=== PATIENT | female | born 1985 | race Caucasian/White ===

== ENCOUNTER 2023-10-20 17:47 | Inpatient (IN) | payer BC, OTHER, SELFPAY ==
[2023-10-20] VITALS (7 sets, daily range): BP systolic 135–167; BP diastolic 76–99; BMI 26.4; BMI 26.0
[2023-10-20 13:47] LABS: Urine Albumin Trace (Neg - Trace); Urine Bilirubin 1+ (Negative); Urine Character Clear (Clear); Urine Color Yellow; Urine Glucose Negative (Negative); Urine Ketone 1+ (Negative); Urine Leukocyte Trace (Negative); Urine Nitrite Negative (Negative); Urine Occult Blood Negative (Negative); Urine Urobilinogen Negative (Neg - 1+)
[2023-10-20 13:49] LABS: % Basophils 0.4 % (0-2); % Eosinophils 0.6 % (0-6); % Immature Granulocytes 0.4 % (0-0.5); % Lymphocytes 7.4 % (20.5-51.1); % Monocytes 3.9 % (1.7-9.3); % Neutrophils 87.3 % (42.2-75.2); Absolute Eosinophils 0.1 10^3/uL (0-0.7); Absolute Lymphocytes 0.6 10^3/uL (1.2-3.4); Absolute Monocytes 0.3 10^3/uL (0.1-0.6); Absolute Neutrophils 7.4 10^3/uL (1.4-6.5); Hematocrit 35.6 % (37.0-47.0); Hemoglobin 11.9 g/dL (12.0-16.0); Mean Corp Hgb Conc. 33.4 g/dL (33.0-37.0); Mean Corpuscular Hgb 31.4 pg (27.0-31.0); Mean Corpuscular Volume 93.9 fL (81.0-99.0); Mean Platelet Volume 10.7 fL (7.4-10.4); Nucleated Red Blood Cells % 0 %; Platelet Count 266 10^3/uL (130-400); Red Blood Cell Count 3.79 10^6/uL (4.20-5.40); Red Cell Dist. Width 11.9 % (11.5-14.5); White Blood Cell Count 8.4 10^3/uL (4.8-10.8)
[2023-10-20 13:58] LABS: Urine Squamous Cell >30 /LPF (Few)
[2023-10-20 13:59] LABS: HCG, Serum Qualitative Screen Negative
[2023-10-20 14:00] LABS: Urine Bacteria Few (Negative); Urine White Cell 0-2 /HPF (0-5)
[2023-10-20 14:01] LABS: Urine Red Blood Cell 0-2 /HPF (0-2)
[2023-10-20 14:03] LABS: ALT (SGPT) 26 U/L (0-35); AST (SGOT) 33 U/L (14-36); Albumin 4.4 g/dl (3.5-5.0); Alkaline Phosphatase 66 U/L (38-126); Blood Urea Nitrogen 20 mg/dl (7-17); Calcium 8.6 mg/dl (8.4-10.2); Carbon Dioxide 24 mmol/L (22-30); Chloride 104 mmol/L (98-107); Glucose 103 mg/dl (70-99); Lipase 25 U/L (23-300); Sodium 139 mmol/L (135-145); Total Bilirubin 0.7 mg/dl (0.2-1.3); Total Protein 6.8 g/dl (6.3-8.2); eGFR > 60.00
[2023-10-20] MEDS: NSS 1000 IV ×2 (15:41→21:17)
[2023-10-20] MEDS: DILAUDID 0.5 MG IV ×3 (15:42→23:58)
[2023-10-20] MEDS: ZOFRAN 4 MG IV (15:42)
--- NOTE | 2023-10-20 16:06 | ED.GENMED ---
History of Present Illness
General
Chief Complaint: Abdominal Pain
Source: patient
Exam Limitations: none
Time Seen by Provider: 10/20/23 15:07
Nursing documentation reviewed up to this point in time: agreed with
History of Present Illness
History of Present Illness:
Patient to ED with complaint of abdominal pain, bilateral flank pain. Symptoms started this AM. Initially had difficulty urinating. States this is a chronic issue for her but today this seemed worse. Denies fever/chills. +n/v. States she had
not had a bowel movement since friday so she gave herself an enema. Now reports diarrhea. Brought to ED by spouse for eval.
Past History
Past History
ED Past Medical History: HTN and Other (Kidney stones, fibromyalgia, elevated SADA - work up in progress for lupus)
ED Past Surgical History: , Gynecological (Uterine ablation 01/2023), Orthopedic and Other (Bariatric surgery February 2019)
Social History
Tobacco: Non-smoker
Alcohol: None
Drug: None
Personal:
Living: with family
Phy Exam
General Physical Exam
General Presentation: well appearing and moderate distress
General age: appears stated age
General Skin: warm and dry
General Habitus: normal
General Mental: alert
Cardiovascular Exam
Cardiovascular Exam: regular rate/rhythm and no edema
Pulmonary Exam
Pulmonary Exam: no respiratory distress
Gastrointestinal Exam
Gastrointestinal Exam: soft, no organomegaly and non distended
Palpation: generalized: Moderate tenderness
Musculoskeletal Exam
Musculoskeletal Exam: full ROM
Skin Exam
Skin Exam: normal color
Psychiatric Exam
Psychiatric Exam: anxious
Course
Orders/Labs/Results
Orders:
Orders
10/20/23 13:25
Test Result ONCE
10/20/23 13:39
Complete Blood Count/With Diff Urgent
Comprehensive Metabolic Panel Urgent
HCG, Serum Qualitative Screen Urgent
Lipase Urgent
Urinalysis Reflex To Culture Urgent
Date Specimen was Collected: 10/20/23
Time Specimen was Collected: 13:25
Urine Microscopic Reflex Cult Urgent
10/20/23 Dinner
NPO
Allow oral meds: Yes
Allow clear liquids: No
10/20/23 15:27
0.9% Sodium Chloride 1000 ml [Nss] 1,000 ml IV BOLUS
HYDROmorphone [Dilaudid] 0.5 mg IV NOW STA
Ondansetron Injectable [Zofran] 4 mg IV NOW STA
10/20/23 15:28
CT Abd/pelvis W Iv Cont Urgent
Comment:
Reason For Exam: abdominal and flankk pain, vomiting.
10/20/23 17:32
Admit/Transfer Patient As Directed
Co-Sign Provider:
Level of Care: Inpatient admission
Assign to:: Medical/Surgical
Physician / Group: sridhar
Diagnosis: small bowel obstruction
Reason for Hospitalization: small bowel obstruction
Expected length of stay greater than two midnights?: Yes
ELOS- Estimated Length of Stay in days: 2
I certify the patient meets the requirements for IP care: Yes
10/20/23 17:33
Code Status As Directed
Resuscitation Status: Full Code
10/20/23 19:19
HYDROmorphone [Dilaudid] 0.5 mg IV Q4HPRN PRN
10/20/23 19:44
0.9% Sodium Chloride 1000 ml [Nss] 1,000 ml IV 100 mls/hr
Alprazolam [Xanax] 0.5 mg PO TIDPRN PRN
Ondansetron Injectable [Zofran] 4 mg IV Q6HPRN PRN
10/20/23 19:44
Activity As Directed
Activity Level: As Tolerated
Bladder Scan As Directed
Follow Bladder Retention/Intermittent Cath Algorithm?: Yes
PRN if no void in __ hours: 6
Frequency: Per Retention Algorithm
If Bladder Scan Result >: 400
then:: Straight cath
Straight Cath As Directed
Frequency: Per Retention Algorithm
Additional Instructions: straight cath as needed per acute urinary retention algorithm for 24 hrs
Additional Instructions: for bladder scan greater than 400 mL
Vital Signs As Directed
Frequency: Per unit guidelines
DX Deep Vein Thrombosis Video Routine
10/20/23 20:00
Gabapentin [Neurontin] 300 mg PO BID
Heparin 5,000 units SC Q12
10/20/23 22:00
Cyclobenzaprine HCl [Flexeril] 5 mg PO HS
10/21/23 06:00
Complete Blood Count/With Diff IN AM
Comprehensive Metabolic Panel IN AM
10/21/23 08:00
Amlodipine [Norvasc] 5 mg PO DAILY
Buspirone [Buspar] 5 mg PO DAILY
Duloxetine Delayed Release [Cymbalta Delayed Release] 30 mg PO DAILY
Duloxetine Delayed Release [Cymbalta Delayed Release] 60 mg PO DAILY
Hydroxychloroquine [Plaquenil] 400 mg PO DAILY
10/21/23 12:00
Amphet Asp/Amphet/D-Amphet [Adderall] 10 mg PO NOON
Abnormal Lab Results
10/20/23
13:39
RBC 3.79 L 10^6/uL
(4.20-5.40)
Hgb 11.9 L g/dL
(12.0-16.0)
Hct 35.6 L %
(37.0-47.0)
MCH 31.4 H pg
(27.0-31.0)
MPV 10.7 H fL
(7.4-10.4)
Absolute Neuts (auto) 7.4 H 10^3/uL
(1.4-6.5)
Absolute Lymphs (auto) 0.6 L 10^3/uL
(1.2-3.4)
Neutrophils % 87.3 H %
(42.2-75.2)
Lymphocytes % 7.4 L %
(20.5-51.1)
BUN 20 H mg/dl
(7-17)
Glucose 103 H mg/dl
(70-99)
Urine Ketones 1+ A
(Negative)
Urine Bilirubin 1+ A
(Negative)
Leukocyte Esterase Rfl Trace A
(Negative)
Urine Bacteria (Reflex) Few A
(Negative)
10/20/23 13:39
10/20/23 13:39
Vital Signs
Initial and Last Documented VS:
Initial Vital Signs
Temp Pulse Resp BP Pulse Ox
98.2 F 95 16 167/99 100
10/20/23 13:25 10/20/23 13:25 10/20/23 13:25 10/20/23 13:25 10/20/23 13:25
Last Documented Vital Signs
Temp Pulse Resp BP Pulse Ox
98.3 F 77 16 144/76 100
10/20/23 20:21 10/20/23 20:21 10/20/23 20:21 10/20/23 20:21 10/20/23 20:21
*Radiology
Radiology exam reviewed: radiology read reviewed (SBO)
*Pulse Oximetry
Patient hypoxic: no
*Critical Care Note
Total Time (30-74mins, 75-104mins- exclusive of procedures): Not Applicable
Update Note
Update Note:
Patient to ED with n/v/d. No fever/chills.Symptoms started this AM Abd CT: SBO possibly due to adhesions. WIll admit to hospitalist. Feeling improved after IVF, pain meds, zofran.
ED Attending Note
-
Portions of this chart may have been created with voice recognition software.� Occasional wrong word or��sound alike� substitutions may have occurred due to the inherent limitations of voice recognition software.
Discharge Plan
Departure
Patient Disposition: Admit
Date of Disposition: 10/20/23
Time of Disposition: 17:09
Presentation/result/management discussed w/ accepting MD/DO: Hospitalist
Condition: Fair
Covid-19: Not Applicable
Discharge Problem:
SBO (small bowel obstruction)
Interventions
Interventions:
*Risk Screen - Suicide Last Done: 10/20/23 15:38
*General Assessment Last Done: 10/20/23 15:38
*Neglect/Abuse Screening Last Done: 10/20/23 15:38
ED- Fall Risk Assessment Last Done: 10/20/23 15:38
*ED COVID-19 Vaccine History Last Done: 10/20/23 15:38
*Nursing Disposition Last Done: 10/20/23 19:44
WZ-Pxqhem-Xxjlowozik Assessment Last Done: 10/20/23 15:38
Discharge Date and Time
Discharge Date/Time: 10/20/23 19:45
--- NOTE | 2023-10-20 17:37 | HPS.HSE ---
Family Physician
-
Family Physician: Isamar Tate
Chief Complaint
-
abdominal pain
History of Present Illness
38-year-old female past medical history of duodenal switch 4 years ago, lupus, hypertension, kidney stones, fibromyalgia, anxiety, ADHD, presenting with abdominal pain, bilateral flank pain which started this morning associate with nausea and
vomiting. She has not had a bowel movement since past Friday so she gave herself an enema this morning and had some diarrhea afterwards. She did have some chills today.
Patient has had history of multiple kidney stones for which she takes chronic pain medicine. She did have some difficulty urinating which occurs chronically but was worse today.
She denies smoking. She rarely drinks alcohol. Denies marijuana or any other drugs.
Medical History
Past Medical History
Past Medical History: Reports Other (duodenal switch 4 years ago, lupus, hypertension, kidney stones, fibromyalgia, anxiety, ADHD)
Past Surgical History: Reports Other ( , Gynecological (Uterine ablation 01/2023), Orthopedic and Other (Bariatric surgery February 2019))
Social History
Tobacco: Non-smoker
Alcohol: Occasional
Drug: None
Family History
Family History: Not pertinent
Allergies / Home Medications
Allergies reflects when Allergies were last updated in [facility].
Home Medications with original date entered in [facility]
Allergy/Medication List:
Allergies
Allergy/AdvReac Type Severity Reaction Status Date / Time
latex [Latex] Allergy swallowing Verified 02/25/23 06:52
issue
Home Medications
loratadine 10 mg tablet 10 mg PO DAILY 04/15/17
alprazolam 0.5 mg tablet (Xanax) 0.5 mg PO TID PRN anxiety 02/20/23
amlodipine 5 mg tablet (Norvasc) 5 mg PO DAILY 02/20/23
buprenorphine HCl 600 mcg buccal film (Belbuca) 600 mcg buccal Q12H 02/20/23
calcium citrate 1,000 mg PO TID 02/20/23
cholecalciferol (vitamin D3) 50 mcg (2,000 unit) tablet (Vitamin D3) 50 mcg PO DAILY 02/20/23
cyclobenzaprine 5 mg tablet 5 mg PO HS 02/20/23
dextroamphetamine-amphetamine 10 mg tablet (Adderall) 10 mg PO NOON 02/20/23
dextroamphetamine-amphetamine ER 25 mg 24hr capsule,extend release (Adderall XR) 25 mg PO DAILY 02/20/23
diphenhydramine HCl 25 mg capsule (Benadryl) 25 mg PO DAILY PRN allergies 02/20/23
duloxetine 30 mg capsule,delayed release (Cymbalta) 30 mg PO DAILY 02/20/23
duloxetine 60 mg capsule,delayed release (Cymbalta) 60 mg PO DAILY 02/20/23
ferrous sulfate 325 mg (65 mg iron) tablet 325 mg PO DAILY 02/20/23
gabapentin 300 mg capsule 300 mg PO BID 02/20/23
hydroxychloroquine 200 mg tablet 400 mg PO DAILY 02/20/23
kxzsmedn-sdhnywnt-meyp 45 mg-folic acid 800 mcg-vit K 120 mcg capsule (Bariatric Multivitamins) 1 cap PO DAILY 02/20/23
nabumetone 500 mg tablet 500 mg PO BID 02/20/23
potassium citrate 15 mEq (1,620 mg) tablet,extended release 45 meq PO TID 02/20/23
rizatriptan 10 mg tablet (Maxalt) 10 mg PO DAILY PRN migraines 02/20/23
zinc 50 mg tablet 50 mg PO DAILY 02/20/23
oxycodone-acetaminophen 5 mg-325 mg tablet 1 tab PO Q6 02/25/23
Review of Systems
-
History Source: Patient
A 12 point ROS was completed and negative except as noted: Yes
Constitutional: Reports No Symptoms
EENT: Reports No Symptoms
Respiratory: Reports No Symptoms
Cardiac: Reports No Symptoms
Abdomen/GI: Reports See HPI
: Reports No Symptoms
Musculoskeletal: Reports No Symptoms
Skin: Reports No Symptoms
Neurological: Reports No Symptoms
Endocrine: Reports No Symptoms
Hematologic/Lymphatic: Reports No Symptoms
Psych: Reports No Symptoms
Physical Exam
Vital Signs
Vital Signs
Temp Pulse Resp BP Pulse Ox
98.2 F 83 17 135/89 99
10/20/23 13:25 10/20/23 17:15 10/20/23 17:15 10/20/23 17:09 10/20/23 17:15
Physical Exam
General: Well Developed, Well Nourished and No Apparent Distress
HEENT: NormoCephalic, Moist mucous membranes and Atraumatic
Respiratory: Clear
Cardiac: S1/S2 and Regular Rhythm; No Murmur or Rub
GI: Soft, Non Distended, Normal Bowel Sounds and Tender (epigastric, right lower quadrant tenderness ); No Organomegaly
Rectal: Deferred by Provider
Musculoskeletal: No Clubbing, No Cyanosis and No Edema
Skin: No Rash
Neuro: Nonfocal/grossly intact
Laboratory Results
-
10/20/23 13:39
10/20/23 13:39
Laboratory Results
Total Bilirubin 0.7 mg/dl (0.2-1.3) 10/20/23 13:39
AST 33 U/L (14-36) 10/20/23 13:39
ALT 26 U/L (0-35) 10/20/23 13:39
Alkaline Phosphatase 66 U/L (38-126) 10/20/23 13:39
Lipase 25 U/L (23-300) 10/20/23 13:39
Data Reviewed
-
Lab Data: Labs Reviewed by me
Old Records: Reviewed
Impression/Plan
-
IMPRESSION:
PLAN:
# Small bowel obstruction likely secondary to adhesions from prior duodenal switch surgery
-CT abdomen pelvis shows small bowel obstruction with transition point in the right hemiabdomen, possibly secondary to adhesions
-N.p.o.
-IV fluids
-Dilaudid for pain, Zofran for nausea
-General surgery consulted
# Possible urinary retention
-Urinalysis negative
-Bladder scan protocol
# Incidental mild bilateral lower lobe infectious/inflammatory bronchiolitis
-Does not correlate clinically
History of duodenal switch surgery 4 years ago
Presumed Lupus
-Continue hydroxychloroquine
Essential hypertension
-Continue amlodipine
History of recurrent kidney stones
Fibromyalgia with Chronic Pain
-Continue gabapentin, Flexeril
-Continue duloxetine
-hold Percocet, Buprenorphine while receiving Dilaudid
Anxiety
-Continue Xanax
ADHD
-Continue Adderall
Migraines
Chronic anemia
-Hemoglobin stable at 11.9
-Continue ferrous sulfate
Full code
DVT prophylaxis�heparin
N.p.o.
[2023-10-20] MEDS: FLUSH (NSS) 1 FLUSH IV (21:17)
[2023-10-20] MEDS: HEPARIN 5000 UNITS SC (21:19)
[2023-10-20] MEDS: NEURONTIN 300 MG PO (21:20)
[2023-10-20] MEDS: FLEXERIL 5 MG PO (21:21)
[2023-10-21] MEDS: CYMBALTA DELAYED RELEASE 60 MG PO ×2 (00:22→22:19)
[2023-10-21] MEDS: CYMBALTA DELAYED RELEASE 30 MG PO ×2 (00:22→22:19)
--- NOTE | 2023-10-21 02:42 | PTCARENOTE ---
Patient received from Ed and ambulated to room with staff. Voiding without difficulty. She was oriented to room and surroundings. HRR,Breath sounds are CTA. Abdominal sounds are hypoactive and tender. Left thigh with small poison kenny rash
with cabbed scratch VIVI. IVF as ordered.
[2023-10-21] MEDS: XANAX 0.5 MG PO ×3 (03:12→22:23)
[2023-10-21 07:20] VITALS: BP 122/93
[2023-10-21 07:41] LABS: % Basophils 0.7 % (0-2); % Eosinophils 1.7 % (0-6); % Immature Granulocytes 0.3 % (0-0.5); % Monocytes 5.7 % (1.7-9.3); % Neutrophils 74.6 % (42.2-75.2); Absolute Basophils 0.1 10^3/uL (0-0.2); Absolute Eosinophils 0.1 10^3/uL (0-0.7); Absolute Lymphocytes 1.2 10^3/uL (1.2-3.4); Absolute Monocytes 0.4 10^3/uL (0.1-0.6); Absolute Neutrophils 5.2 10^3/uL (1.4-6.5); Hematocrit 37.1 % (37.0-47.0); Hemoglobin 12.5 g/dL (12.0-16.0); Mean Corp Hgb Conc. 33.7 g/dL (33.0-37.0); Mean Corpuscular Hgb 31.3 pg (27.0-31.0); Mean Corpuscular Volume 92.8 fL (81.0-99.0); Mean Platelet Volume 10.9 fL (7.4-10.4); Nucleated Red Blood Cells % 0 %; Platelet Count 283 10^3/uL (130-400); Red Cell Dist. Width 11.8 % (11.5-14.5); White Blood Cell Count 6.9 10^3/uL (4.8-10.8)
[2023-10-21] MEDS: NSS 1000 IV ×2 (07:43→18:27)
[2023-10-21] MEDS: DILAUDID 0.5 MG IV ×2 (07:43→13:38)
[2023-10-21 08:15] LABS: ALT (SGPT) 19 U/L (0-35); AST (SGOT) 26 U/L (14-36); Albumin 3.4 g/dl (3.5-5.0); Alkaline Phosphatase 66 U/L (38-126); Blood Urea Nitrogen 11 mg/dl (7-17); Calcium 8.3 mg/dl (8.4-10.2); Carbon Dioxide 22 mmol/L (22-30); Chloride 107 mmol/L (98-107); Estimated Creatinine Clearance 112 ml/min; Glucose 86 mg/dl (70-99); Potassium 3.7 mmol/L (3.5-5.1); Sodium 139 mmol/L (135-145); Total Bilirubin 0.6 mg/dl (0.2-1.3); Total Protein 5.5 g/dl (6.3-8.2); eGFR > 60.00
[2023-10-21] MEDS: BUSPAR 5 MG PO (10:18)
[2023-10-21] MEDS: PLAQUENIL 400 MG PO (10:18)
[2023-10-21] MEDS: NORVASC 5 MG PO (10:18)
[2023-10-21] MEDS: HEPARIN 5000 UNITS SC ×2 (10:18→20:05)
[2023-10-21] MEDS: NEURONTIN 300 MG PO ×2 (10:18→20:06)
[2023-10-21] MEDS: OMNIPAQUE 50 ML PO (10:50)
--- NOTE | 2023-10-21 11:02 | CON.GS ---
Medical History
-
Chief Complaint: Abdominal pain, nausea, vomiting.
History of Present Illness:
Patient is a 38 yo F with a PMH of anxiety/depression, fibromyalgia, ADHD, HTN, s/p , s/p uterine ablation, and obesity s/p laparoscopic duodenal switch in 2019 at [facility] c/b nephrolithiasis and chronic pain. Ms. Rodas
presents with abdominal pain, nausea, and vomiting. Her symptoms for started yesterday. Last bowel movement was on Friday. She reports flatus since presentation to the hospital. Overall her symptoms have improved but not completely resolved.
She denies any current nausea or vomiting. She continues to have some mild crampy abdominal pain. No dietary indiscretion. She is on daily narcotics for chronic pain as it relates to her fibromyalgia and issues with nephrolithiasis. Of note, she
lost over 150 pounds post duodenal switch. She was lost to follow-up at [place] during COVID.
Past Medical History
Past Medical History: HTN, Psychiatric (Depression/anxiety, fibromyalgia, ADHD) and Other (Nephrolithiasis)
Past Surgical History: Bariatric (Laparoscopic duodenal switch in 2019 at [facility]), and Gynecological (Uterine ablation)
Social History
Tobacco: Non-Smoker
Alcohol: Occasional
Drug: None
Family History
Family History: Reviewed & Not Pertinent
Allergies / Home Medications
Allergy/AdvReac Type Severity Reaction Status Date / Time
latex [Latex] Allergy swallowing Verified 02/25/23 06:52
issue
�Medication �Instructions �Recorded �Confirmed �Type
loratadine 10 mg tablet 10 mg PO DAILY 04/15/17 02/25/23 History
alprazolam 0.5 mg tablet (Xanax) 0.5 mg PO TID PRN anxiety 02/20/23 10/21/23 History
amlodipine 5 mg tablet (Norvasc) 5 mg PO HS 02/20/23 10/21/23 History
calcium citrate 1,000 mg PO TID 02/20/23 10/21/23 History
cholecalciferol (vitamin D3) 50 50 mcg PO DAILY 02/20/23 10/21/23 History
mcg (2,000 unit) tablet (Vitamin
D3)
cyclobenzaprine 5 mg tablet 5 mg PO HS 02/20/23 10/21/23 History
dextroamphetamine-amphetamine ER 25 mg PO DAILY 02/20/23 10/21/23 History
25 mg 24hr capsule,extend release
(Adderall XR)
diphenhydramine HCl 25 mg capsule 25 mg PO DAILY PRN allergies 02/20/23 02/25/23 History
(Benadryl)
duloxetine 30 mg capsule,delayed 30 mg PO HS 02/20/23 10/21/23 History
release (Cymbalta)
duloxetine 60 mg capsule,delayed 60 mg PO HS 02/20/23 10/21/23 History
release (Cymbalta)
ferrous sulfate 325 mg (65 mg 325 mg PO DAILY 02/20/23 10/21/23 History
iron) tablet
gabapentin 300 mg capsule 300 mg PO BID 02/20/23 10/21/23 History
hydroxychloroquine 200 mg tablet 400 mg PO Q OTHER DAY 02/20/23 10/21/23 History
smitwcez-zbsehgcf-nhra 45 mg-folic 1 cap PO DAILY 02/20/23 02/25/23 History
acid 800 mcg-vit K 120 mcg capsule
(Bariatric Multivitamins)
nabumetone 500 mg tablet 500 mg PO BID 02/20/23 10/21/23 History
potassium citrate 15 mEq (1,620 30 meq PO MEALS 02/20/23 10/21/23 History
mg) tablet,extended release
zinc 50 mg tablet 50 mg PO DAILY 02/20/23 02/25/23 History
oxycodone-acetaminophen 5 mg-325 1 tab PO Q6 02/25/23 02/25/23 History
mg tablet
buspirone 5 mg tablet 5 mg PO DAILY 10/20/23 10/20/23 History
buprenorphine HCl 600 mcg buccal 600 mcg buccal Q12H 10/21/23 10/21/23 History
film (Belbuca)
hydroxychloroquine 200 mg tablet 200 mg PO Q OTHER DAY 10/21/23 10/21/23 History
rizatriptan 10 mg tablet (Maxalt) 10 mg PO ONCE PRN migraine 10/21/23 10/21/23 History
Review of Systems
-
A 10 point review of systems was completed, and was negative except as per HPI.
Physical Exam
Vital Signs
Temp Pulse Resp BP Pulse Ox
98.1 F 87 16 122/93 98
10/21/23 07:20 10/21/23 10:18 10/21/23 07:20 10/21/23 10:18 10/21/23 07:20
10/20/23 10/21/23 10/22/23
06:59 06:59 06:59
Actual Weight 70.76 kg
Body Mass Index (BMI) 26.0
Lab Results
10/21/23 07:08
10/21/23 07:08
WBC 6.9 10^3/uL (4.8-10.8) 10/21/23 07:08
Hgb 12.5 g/dL (12.0-16.0) 10/21/23 07:08
Hct 37.1 % (37.0-47.0) 10/21/23 07:08
Plt Count 283 10^3/uL (130-400) 10/21/23 07:08
Abs Immat Gran (auto) 0.0 10^3/uL (0-0.05) 10/21/23 07:08
Neutrophils % 74.6 % (42.2-75.2) 10/21/23 07:08
Physical Exam
General: Well Developed and Well Nourished
HEENT: Normocephalic and Anicteric
Respiratory: Non Labored Respirations
Cardiac: Regular Rhythm
GI: Soft, Tender (Mild lower abdomen), Distended (Mild, tympanitic), Incisions (Well-healed) and Other (Nonperitoneal, no rebound or guarding)
Musculoskeletal: No Edema
Neuro: Nonfocal/Grossly Intact
Data Reviewed
-
CT Scan: Image Personally Visualized and interpreted and Report Reviewed by me
Labs: Labs Reviewed by me
Assessment / Plan
-
Patient is a 38 yo F s/p laparoscopic duodenal switch p/w SBO likely secondary to adhesions. Differential includes internal hernia given her bariatric surgery history.
Some signs of clinical improvement. CT scan limited by lack of oral contrast. No clear evidence of pneumatosis or free air. No clear evidence of mesenteric swirling or internal hernia. Recommend repeat CT scan with oral and IV contrast to better
rule out internal hernia, aid with diagnosis, and for therapeutic purposes. Continue with medical management. We discussed that should she not progress and ultimately need surgical management that we would likely pursue transfer back to [place]
[facility] where she has received her prior bariatric surgery care. All questions answered.
-- No plans for surgery today
-- CT abdomen/pelvis with PO and IV contrast
-- NPO, IVF
--- NOTE | 2023-10-21 12:34 | W.PN.HOSP.TC ---
Today's Communication/Plan
-
see bold
Assessment / Plan
Assessment / Plan
Gen: NAD, AAOx3.
Eyes: EOMI, PERRLA, no scleral icterus.
Neck: supple.
CV: RRR, +S1/S2, no m/r/g.
Resp: CTAB, no rales, wheezes, or rhonchi.
Abd: +BS, soft, NT to light palpation, ND
Skin: No rashes.
Neuro: CN 2-12 intact, non-focal.
Psych: Normal mood and affect.
Small bowel obstruction likely secondary to adhesions from prior duodenal switch surgery:
-h/o duodenal switch surgery 4 years ago
-CT abdomen pelvis on admission showed small bowel obstruction with transition point in the right hemiabdomen, possibly secondary to adhesions
-NPO/IVFs, surgery following
-check CT A/P with PO/IV contrast
-Dilaudid for pain, Zofran for nausea
Other problems:
Possible urinary retention: Urinalysis negative. Bladder scan protocol.
Incidental mild bilateral lower lobe infectious/inflammatory bronchiolitis: Does not correlate clinically
Presumed Lupus: Continue hydroxychloroquine
Essential hypertension: Continue amlodipine
h/o recurrent kidney stones
Fibromyalgia with Chronic Pain: Continue gabapentin/Flexeril/duloxetine. Hold Percocet, Buprenorphine while receiving Dilaudid .
Anxiety: Continue Xanax
ADHD: Continue Adderall
Migraines
Chronic anemia: Continue ferrous sulfate
FULL/heparin
Anticipated Discharge: 24 - 48 hours
Subjective/Interval History
-
Date of Service: October 21, 2023
No new complaints.
Objective Data
-
Labs:
Laboratory Results
10/21/23
07:08
WBC 6.9
Hgb 12.5
Hct 37.1
Plt Count 283
Sodium 139
Potassium 3.7
Chloride 107
Carbon Dioxide 22
BUN 11
Creatinine 0.5 L
Glucose 86
Calcium 8.3 L
Total Bilirubin 0.6
AST 26
ALT 19
Alkaline Phosphatase 66
Vital Signs:
Vital Signs
Temp Pulse Resp BP Pulse Ox
98.1 F 87 16 122/93 98
10/21/23 07:20 10/21/23 10:18 10/21/23 07:20 10/21/23 10:18 10/21/23 07:20
I&O
10/20/23 10/21/23 10/22/23
06:59 06:59 06:59
Intake Total 1000 / 1000
Balance 1000 / 1000
[2023-10-21] MEDS: ADDERALL PO (13:15)
[2023-10-21 13:39] VITALS: BP 134/80
[2023-10-21 15:25] VITALS: BP 113/82
[2023-10-21] MEDS: FLEXERIL 5 MG PO (22:19)
[2023-10-21 22:58] VITALS: BP 121/76
[2023-10-22] MEDS: NSS 1000 IV (04:02)
--- NOTE | 2023-10-22 04:16 | PTCARENOTE ---
Patient states that she has hx of frequent kidney stones. She stated that she felt one pass while using the toilet. Tiny black piece noted in toilet. Patient feels more comfortable this shift. She is tolerating clear liquids. VSS
[2023-10-22 07:15] VITALS: BP 124/80
[2023-10-22] MEDS: HEPARIN 5000 UNITS SC (08:23)
[2023-10-22] MEDS: BUSPAR 5 MG PO (08:23)
[2023-10-22] MEDS: NORVASC 5 MG PO (08:23)
[2023-10-22] MEDS: NEURONTIN 300 MG PO (08:23)
[2023-10-22] MEDS: PLAQUENIL 400 MG PO (08:24)
--- NOTE | 2023-10-22 09:05 | PN.CDI ---
CDI
- -
CDI:
Physician Documentation Request
Admit Date: 10/20/23 17:47
Dear Doctor Edi,
Please review the following and provide your response in the progress notes.
Clinical Indicators:
- 10/20 PN 'Fibromyalgia with Chronic Pain...Hold Percocet, Buprenorphine while receiving Dilaudid'
- per H&P buprenorphine Q12H, percocet Q6H
- hydromorphone 0.5mg Q4H given x 5
If possible, please provide further specificity as outlined below:
Opioid use with or without dependence
Opioid dependence
Other
Use of terms such as suspected, likely, concern for, or probable (associated with a specific diagnosis that is being evaluated, monitored, or treated as if it exists) are acceptable and can be coded in the inpatient setting, when documented at the
time of discharge.
Thank you,
Héctor Baez RN
CDI Specialist
Please use your independent medical judgment in providing your response.
--- NOTE | 2023-10-22 09:10 | W.PN.HOSP.TC ---
Today's Communication/Plan
-
see bold
Assessment / Plan
Assessment / Plan
Gen: NAD, AAOx3.
Eyes: EOMI, PERRLA, no scleral icterus.
Neck: supple.
CV: RRR, +S1/S2, no m/r/g.
Resp: CTAB, no rales, wheezes, or rhonchi.
Abd: +BS, soft, NT to light palpation, ND
Skin: No rashes.
Neuro: CN 2-12 intact, non-focal.
Psych: Normal mood and affect.
CT A/P 10/21/23:
1). There is small bowel wall thickening and dilatation was much is 3.8 cm in the mid and right abdomen suggesting small bowel enteritis with large volume associated ascites throughout the abdomen and pelvis
2). Patchy areas of groundglass airspace disease in both lung bases are stable when compared with the prior study.
Small bowel obstruction likely secondary to adhesions from prior duodenal switch surgery:
-h/o duodenal switch surgery 4 years ago
-CT abdomen pelvis on admission showed small bowel obstruction with transition point in the right hemiabdomen, possibly secondary to adhesions
-repeat CT A/P above, notable for small bowel enteritis and large volume ascites
-advanced to clears
-surgery following
-stop IV dilaudid, restart home Buprenorphine
-Dilaudid for pain, Zofran for nausea
Other problems:
Possible urinary retention: Urinalysis negative. Bladder scan protocol.
Incidental mild bilateral lower lobe infectious/inflammatory bronchiolitis: Does not correlate clinically
Presumed Lupus: Continue hydroxychloroquine
Essential hypertension: Continue amlodipine
h/o recurrent kidney stones
Fibromyalgia with Chronic Pain, chronic opioid use with dependence: Continue gabapentin/Flexeril/duloxetine. stop IV dilaudid, restart home Buprenorphine.
Anxiety: Continue Xanax
ADHD: Continue Adderall
Migraines
Chronic anemia: Continue ferrous sulfate
FULL/heparin
Anticipated Discharge: 24 - 48 hours
Subjective/Interval History
-
Date of Service: October 22, 2023
No new complaints. Tolerating some clears.
Objective Data
-
Vital Signs:
Vital Signs
Temp Pulse Resp BP Pulse Ox
99.1 F 83 14 124/80 98
10/22/23 07:15 10/22/23 08:23 10/22/23 07:15 10/22/23 08:23 10/22/23 08:21
I&O
10/21/23 10/22/23 10/23/23
06:59 06:59 06:59
Intake Total 2280 / 2280 1200 / 1200
Balance 2280 / 2280 1200 / 1200
--- NOTE | 2023-10-22 10:32 | W.PN.UPDATE ---
Update Note
Progress Note Update
Case discussed with surgery. Patient is having bowel movements and passing flatus. She would like to go home. As per surgery the patient knows how to slowly advance her diet. As per surgery if the patient tolerates clears she can be discharged
home later today with a repeat CT scan of the abdomen pelvis in 2 to 4 weeks.
[2023-10-22] MEDS: RELAFEN 500 MG PO (10:46)
[2023-10-22] MEDS: FEOSOL 325 MG PO (10:46)
[2023-10-22] MEDS: ADDERALL 10 MG PO (13:09)
--- NOTE | 2023-10-22 14:10 | W.PN.GS2 ---
Today's Communication / Plan
-
Trial clears
OK for DC when tolerates, she prefers to manage her diet advancement at home
Assessment / Plan
-
Patient is a 38 yo F s/p laparoscopic duodenal switch p/w SBO likely secondary to adhesions. Differential includes internal hernia given her bariatric surgery history.
Some signs of clinical improvement. CT scan limited by lack of oral contrast. No clear evidence of pneumatosis or free air. No clear evidence of mesenteric swirling or internal hernia. Recommend repeat CT scan with oral and IV contrast to better
rule out internal hernia, aid with diagnosis, and for therapeutic purposes. Continue with medical management. We discussed that should she not progress and ultimately need surgical management that we would likely pursue transfer back to [facility] where she has received her prior bariatric surgery care. All questions answered.
Exam today benign
CT with contrast to right colon, increased ascites of unclear etiology
--Adv to clears
--Ambulate
--She is well versed in diet advancement 2/2 her bariatric procedure, she prefers to adv her diet on her own and is confident she can manage this
--If tolerates clears, OK for DC with slow diet advancement as outpt. Recommended she f/u with her bariatric surgeon as well
--Rec rpt CT A/P in 2-4 weeks to eval for resolution of ascites
--Pls call with ?s
Subjective Data
-
Date of Service: October 22, 2023
AFVSS, ambulating, voiding, passing flatus and BMs, reports feeling better but not totally resolved
Objective Data
-
Intake and Output
10/21/23 10/22/23 10/23/23
06:59 06:59 06:59
Intake Total 2280 / 2280 1200 / 1200
Balance 2280 / 2280 1200 / 1200
Intake:
Oral fluids 1280 / 1280
IV fluids (Total) 1000 / 1000 1200 / 1200
Other:
Number of approximated MODERATE 2 1
amounts of urine
Vital Signs
Temp Pulse Resp BP Pulse Ox
99.1 F 83 14 124/80 98
10/22/23 07:15 10/22/23 08:23 10/22/23 07:15 10/22/23 08:23 10/22/23 08:21
Lab Results
10/21/23 07:08
10/21/23 07:08
Calcium 8.3 mg/dl (8.4-10.2) L 10/21/23 07:08
Total Bilirubin 0.6 mg/dl (0.2-1.3) 10/21/23 07:08
AST 26 U/L (14-36) 10/21/23 07:08
ALT 19 U/L (0-35) 10/21/23 07:08
Alkaline Phosphatase 66 U/L (38-126) 10/21/23 07:08
Total Protein 5.5 g/dl (6.3-8.2) L 10/21/23 07:08
Albumin 3.4 g/dl (3.5-5.0) L 10/21/23 07:08
Physical Exam
-
Gen: NAD
Abd: soft, nt, nd
[2023-10-22 15:14] VITALS: BP 115/70
--- NOTE | 2023-10-22 15:42 | PTCARENOTE ---
Pt AAO x3, PRINCE well, ambulatory in room/to BR; casimiro well. VSS. On room air- pulse ox 97%. Abd soft, non-tender, casimiro clear liquid diet. Voiding in BR without difficulty. Resting in bed at present. Will continue to monitor.
--- NOTE | 2023-10-22 15:48 | CM ---
Franklyn met with Rina at beside today. She is anxious to go home and take care of her kids; her son is diabetic with an insulin pump, so although he is (I) with the pump, she is concerned about friends being anxious about the pump possibly
malfunctioning.
Support provided.
Rina denies need for resources at discharge.
Plan: Discharge to home with no needs.
--- NOTE | 2023-10-23 16:45 | W.DCSUMMARY ---
Discharge Summary
Discharge Data
Date of Admission: 10/20/23
Date of Discharge: 10/22/23
-
Pending Results: No
Hospital Course
Primary diagnoses:
Small bowel obstruction likely secondary to adhesions from prior duodenal switch surgery
Secondary diagnoses:
Incidental mild bilateral lower lobe infectious/inflammatory bronchiolitis
Presumed Lupus
Essential hypertension
h/o recurrent kidney stones
Fibromyalgia with Chronic Pain, chronic opioid use with dependence
Anxiety
Attention deficit hyperactivity disorder
Migraines
Chronic anemia
Consultants:
General surgery
Imaging:
CT A/P 10/20/23:
1. Small bowel obstruction with transition point in the right hemiabdomen, possibly secondary to adhesions.
2. Small volume of reactive abdominopelvic ascites.
3. Mild bilateral lower lobe infectious/inflammatory bronchiolitis.
CT A/P 10/21/23:
1). There is small bowel wall thickening and dilatation was much is 3.8 cm in the mid and right abdomen suggesting small bowel enteritis with large volume associated ascites throughout the abdomen and pelvis
2). Patchy areas of groundglass airspace disease in both lung bases are stable when compared with the prior study.
Hospital course: 38-year-old female who presented with a chief complaint of abdominal pain as outlined in H&P done on admission. She had a history of duodenal switch surgery 4 years prior to admission. CT scan of the abdomen pelvis showed small
bowel obstruction with transition point in the right hemiabdomen, possibly secondary to adhesions. Patient was supported with IV fluids. She was kept NPO. She did not require NG tube decompression. She was seen by surgery. Repeat CT scan of the
abdomen pelvis was notable for small bowel enteritis and large volume ascites. Her diet was advanced to clear liquid diet which she was tolerating the time of discharge. Dr. Wren recommended that the patient be discharged and that she could
advance her diet slowly at home on discharge. Repeat CT scan of the abdomen pelvis in 2 to 4 weeks was recommended. She was discharged in medically stable condition.
Discharge Plan
-
Patient Disposition: Home (Routine Discharge)
Discharge Diagnosis/Procedures: Small bowel enteritis
Condition: Good
Diet: Other diet
Additional Diets: Clear liquids, advance as tolerated but would recommend full liquids for 2 days followed by low residue for 3 to 7 days
Activity: As tolerated
Driving Restrictions: As prior to admission
Others Tests: CT scan of the abdomen pelvis with IV and oral contrast in 2 to 4 weeks to assess small bowel enteritis and ascites
Referrals:
Isamar Tate PA-C [Family Provider] - in less than 1 week
Prescriptions:
Continued
loratadine 10 MG tablet
10 mg PO DAILY
amlodipine [Norvasc] 5 mg Tablet
5 mg PO HS
alprazolam [Xanax] 0.5 mg Tablet
0.5 mg PO TID PRN (Reason: anxiety)
diphenhydramine HCl [Benadryl] 25 mg Capsule
25 mg PO DAILY PRN (Reason: allergies)
ferrous sulfate 325 mg (65 mg iron) Tablet
325 mg PO DAILY
gabapentin 300 mg Capsule
300 mg PO BID
zinc 50 mg Tablet
50 mg PO DAILY
hydroxychloroquine 200 mg Tablet
400 mg PO Q OTHER DAY
nabumetone 500 mg Tablet
500 mg PO BID
dextroamphetamine-amphetamine [Adderall XR] 25 mg Capsule,Extended Release 24hr
25 mg PO DAILY
cyclobenzaprine 5 mg Tablet
5 mg PO HS
duloxetine [Cymbalta] 30 mg Capsule,Delayed Release(Dr/Ec)
30 mg PO HS
duloxetine [Cymbalta] 60 mg Capsule,Delayed Release(Dr/Ec)
60 mg PO HS
calcium citrate 250 mg calcium Tablet
1,000 mg PO TID
Rx Instructions:
2 with meals 3x daily
cholecalciferol (vitamin D3) [Vitamin D3] 50 mcg (2,000 unit) Tablet
50 mcg PO DAILY
potassium citrate 15 mEq Tablet Extended Release
30 meq PO MEALS
Rx Instructions:
with meals
Bariatric Multivitamins 45 mg iron- 800 mcg-120 mcg Capsule
1 cap PO DAILY
oxycodone-acetaminophen 5 MG/325 MG tablet
1 tab PO Q6 PRN (Reason: pain)
buspirone 5 mg Tablet
5 mg PO DAILY
rizatriptan [Maxalt] 10 mg Tablet
10 mg PO ONCE PRN (Reason: migraine)
hydroxychloroquine 200 mg Tablet
200 mg PO Q OTHER DAY
buprenorphine HCl [Belbuca] 600 mcg Film
600 mcg BUCCAL Q12H
Rx Instructions:
1-2x daily
Discharge Orders:
Discharge Patient (As Directed); Ordered 10/22/23
Ordered By: Benjy Daley
Discharge Date and Time
Discharge Date/Time: 10/22/23 19:03
Print Language: LUXEMBOURG[place]
== END 2023-10-22 19:03 | disposition home or self-care (01) | DRG 389 ==
LOC: 4 EAST ACU 17:47
PROVIDERS: ADMITTING PHYSICIAN Hospitalist; ATTENDING PHYSICIAN Internal Medicine; EMERGENCY PHYSICIAN Emergency Medicine; FAMILY PHYSICIAN Physician Assistant; OTHER PHYSICIAN Surgery
DX: K56.50 Intestinal adhesions [bands], unspecified as to partial versus complete obstruction (principal); F11.20 Opioid dependence, uncomplicated; J21.9 Acute bronchiolitis, unspecified; I10 Essential (primary) hypertension; M79.7 Fibromyalgia; F41.9 Anxiety disorder, unspecified; F90.9 Attention-deficit hyperactivity disorder, unspecified type; D53.9 Nutritional anemia, unspecified
CPT/HCPCS: 74177; 80053; 81003; 81015; 83690; 84703; 85025; 96361; 96374; 96375; 99285; Q9967

== ENCOUNTER 2025-01-15 20:36 | Emergency (ER) | payer OTHER, SELFPAY ==
[2025-01-15 20:42] VITALS: BP 185/143
[2025-01-15 21:01] LABS: Hematocrit 34.4 % (37.0-47.0); Hemoglobin 11.2 g/dL (12.0-16.0); Mean Corp Hgb Conc. 32.6 g/dL (33.0-37.0); Mean Corpuscular Volume 88.4 fL (81.0-99.0); Nucleated Red Blood Cells % 0 %; Platelet Count 264 10^3/uL (130-400); Red Cell Dist. Width 13.9 % (11.5-14.5)
[2025-01-15 21:13] LABS: HCG, Serum Qualitative Screen Negative
[2025-01-15 21:24] LABS: ALT (SGPT) 24 U/L (0-35); AST (SGOT) 25 U/L (14-36); Albumin 4.9 g/dl (3.5-5.0); Alkaline Phosphatase 72 U/L (38-126); Blood Urea Nitrogen 25 mg/dl (7-17); Calcium 9.1 mg/dl (8.4-10.2); Carbon Dioxide 23 mmol/L (22-30); Chloride 108 mmol/L (98-107); Glucose 87 mg/dl (70-99); Lipase 43 U/L (23-300); Potassium 4.0 mmol/L (3.5-5.1); Sodium 139 mmol/L (135-145); Total Protein 7.2 g/dl (6.3-8.2); eGFR > 60.00
[2025-01-15 22:16] VITALS: BP 184/110
[2025-01-15 22:17] VITALS: BMI 24.8
[2025-01-15] MEDS: ZOFRAN 4 MG IV (22:42)
[2025-01-15] MEDS: DILAUDID 0.5 MG IV (22:42)
[2025-01-15] MEDS: NSS 1000 IV (22:43)
--- NOTE | 2025-01-15 23:00 | ED.GENMED ---
History of Present Illness
General
Chief Complaint: Abdominal Pain
Source: patient and previous hospital records (Hospitalization September 2023 for small bowel obstruction)
Exam Limitations: none
Time Seen by Provider: 01/15/25 22:06
Nursing documentation reviewed up to this point in time: agreed with
History of Present Illness
History of Present Illness:
The patient is a 39-year-old female with a past medical history significant for bariatric surgery performed in 2018. She presents with abdominal pain similar to previous bowel obstruction. The symptoms began this afternoon. The patient reports
feeling bloated and experiences abdominal distention, which has been getting worse. She notes that the pain feels like a 'balloon' and associates it with a previous bowel obstruction experienced in September of the last year. The patient mentioned
managing a small bowel movement this morning, but reports feelings of bowel restriction and difficulty in passing gas. She has a history of abdominal wall hernia, which previously required reduction but has not recurred. The patient admits to nausea
but has had no vomiting, or changes in urination. No fever nor chills.
She states 1 week ago she experienced abdominal wall hernia protrusion that she reduced herself but continued with some abdominal pain. She presented to [facility] 1 week ago and reports undergoing CT of the abdomen pelvis which showed
constipation but no bowel obstruction nor hernia. She was recommended to take MiraLAX which she had been doing but then developed diarrhea 3 days ago thus has stopped the MiraLAX. She continued with a few loose stools the following day and perhaps
1 yesterday. She has had no hematochezia.
She has history of endometrial ablation procedure. Has not had a menstrual period since then.
She has history of fibromyalgia, chronic pain syndrome, opioid dependent. Follows with pain management. History of generalized anxiety disorder, maintained on alprazolam, Cymbalta. Prior workup for lupus has been inconclusive. Had been
maintained on hydroxychloroquine without improvement in symptoms thus this has been discontinued. Currently on no immunologic's.
She does have history of hypertension, blood pressure has been elevated over the past several months. Metoprolol resumed by PCP 2 months ago then dose increased to 50 mg 1 month ago, but after few days patient states blood pressure dropped to 80
systolic thus she has since discontinued metoprolol. She has not followed up with PCP as yet.
Past History
Past History
ED Past Medical History: Fibromyalgia, GERD (Hiatal hernia), HTN, Psychiatric (Generalized anxiety disorder) and Other (Kidney stones, fibromyalgia, elevated SADA - work up for lupus inconclusive; chronic pain-opioid dependent)
ED Past Surgical History: , Gynecological (Uterine ablation 01/2023), Orthopedic (Bilateral carpal tunnel release) and Other (Bariatric surgery February 2019)
Social History
Tobacco: Non-smoker
Alcohol: None
Drug: None
Personal:
Living: with family
Employment: Employed
Family History
Family History: Hypertension
Phy Exam
Physical Exam
Physical Exam:
GENERAL: 39-year-old woman appears her stated age, awake and alert, moderately anxious, tearful, rocking.
EYE: anicteric
NECK: Supple, nontender, no meningismus, no significant adenopathy.
ENT: oral mucosa is moist. No rhinorrhea.
CARDIAC: Regular rate and rhythm. no murmur.
LUNGS: Clear breath sounds bilaterally, no acute respiratory distress, no wheezes/rales/rhonchi
ABDOMEN: Minimally distended, moderately firm without rigidity, mild tenderness epigastric as well as left upper quadrant, no palpable masses nor palpable hernia defects, mildly hypoactive bowel sounds, nondistended, no rigidity nor guarding, no
cvat.
NEUROLOGICAL: Alert and oriented x3, no focal neuro deficits. Gait is steady.
SKIN: Warm and dry, normal color, skin intact. No rash.
MUSCULOSKELETAL: No C/C/E. peripheral pulses are full and equal b/l. No palpable tenderness.
PSYCH: Moderately anxious.
Course
Orders/Labs/Results
Orders:
Orders
01/15/25 20:46
IV Insert/Care/Rem.- Treatment PRN
Test Result ONCE
01/15/25 20:51
Complete Blood Count/With Diff Urgent
Comprehensive Metabolic Panel Urgent
HCG, Serum Qualitative Screen Urgent
Comment: Notify provider if positive test present
Lactic Acid Urgent
Lipase Urgent
01/15/25 22:17
CT Abd/pelvis W Iv Cont Urgent
Comment:
Reason For Exam: abdominal pain x 1 d, hx SBO
0.9% Sodium Chloride 1000 ml [Nss] 1,000 ml IV BOLUS
01/15/25 22:39
HYDROmorphone [Dilaudid] 0.5 mg IV NOW STA
Ondansetron Injectable [Zofran] 4 mg IV NOW STA
01/15/25 23:55
Urinalysis Reflex To Culture Urgent
Date Specimen was Collected: 01/15/25
Time Specimen was Collected: 20:46
Urine Microscopic Reflex Cult Urgent
01/16/25 00:21
Amlodipine [Norvasc] 5 mg PO NOW STA
Abnormal Lab Results
01/15/25 01/15/25
20:51 23:55
RBC 3.89 L 10^6/uL
(4.20-5.40)
Hgb 11.2 L g/dL
(12.0-16.0)
Hct 34.4 L %
(37.0-47.0)
MCHC 32.6 L g/dL
(33.0-37.0)
MPV 10.5 H fL
(7.4-10.4)
Chloride 108 H mmol/L
(98-107)
BUN 25 H mg/dl
(7-17)
Lactic Acid 0.6 L mmol/L
(0.7-2.0)
Urine Albumin (Reflex) 2+ A
(Neg - Trace)
01/15/25 20:51
01/15/25 20:51
Vital Signs
Initial and Last Documented VS:
Initial Vital Signs
Temp Pulse Resp BP Pulse Ox
98.2 F 95 16 185/143 100
01/15/25 20:42 01/15/25 20:42 01/15/25 20:42 01/15/25 20:42 01/15/25 20:42
Last Documented Vital Signs
Temp Pulse Resp BP Pulse Ox
98.2 F 79 15 164/96 97
01/15/25 20:42 01/16/25 00:00 01/16/25 00:00 01/15/25 23:44 01/15/25 23:44
MDM/Problems Addressed
Differential Diagnosis Includes:
The Differential Diagnosis includes, in no particular order and is not limited to:
1. Bowel obstruction
2. Abdominal wall hernia recurrence
3. Ileus
4. Adhesions post-surgery
5. Incarcerated hernia
6. Gastroenteritis
7. Diverticulitis
8. Kidney stones
9. Constipation
10. Gastroesophageal reflux disease (GERD)
MDM/Problems Addressed:
Acute:
1. Abdominal pain with suspected bowel obstruction
2. Bloating and limited bowel movement
3. Abdominal wall hernia with potential recurrence
Chronic:
1. Hypertension
2. Chronic pain syndrome�narcotic dependent
3. Generalized anxiety disorder
Plan:
1. Administer pain relief for the patients discomfort. Initiate IV fluids as well as antiemetic.
2. Arrange for a CT scan to evaluate the current abdominal status and assess for potential bowel obstruction.
3. Consider antihypertensive medication but initial goal is improvement in pain relief.
Chronic conditions affecting care: HTN, Previous abdomnial surgery and Psychiatric illness
*Radiology
Radiology exam reviewed: radiology read reviewed
*Pulse Oximetry
SaO2: 98
Oxygen Mode of Delivery: Room air
Patient hypoxic: no
*Critical Care Note
Total Time (30-74mins, 75-104mins- exclusive of procedures): Not Applicable
Update Note
Update Note:
00:15
Patient feeling markedly improved after 1 small IV dose of Dilaudid. She is now passing gas.
Abdomen is much less distended, soft, without appreciable tenderness.
CAT scan shows mild dilation of proximal small bowel loops with gas and fluid with relatively decompressed distal small bowel in the lower abdomen but no definitive transition point identified. There is also mildly distended colon with gas and
stool. CAT scan findings favor a motility disorder/ileus, less likely early or partial obstruction.
It is reassuring that patient is feeling markedly improved, passing gas and abdomen is soft without appreciable tenderness. At this point small bowel obstruction is unlikely.
I have offered hospitalization to continue to observe but patient declines and is eager to be discharged to home.
She plans to follow-up with her bariatric surgeon at [facility].
She continues with moderate hypertension and states her blood pressure has remained elevated with systolic in the 180s, diastolic in the 100s for a number of months.
According to our records she had been maintained on amlodipine in the past. Currently taking no antihypertensives.
Recommend resumption of amlodipine and will give a dose now, 5 mg and I have written a prescription for similar.
Along with prompt follow-up with bariatric surgeon, recommend prompt follow-up with PCP as well.
For what appears to be somewhat chronic constipation, recommend she start a daily Colace as well as daily MiraLAX taking half a capful in a glass of water.
Return precautions discussed.
ED Attending Note
-
Portions of this chart may have been created with voice recognition software.� Occasional wrong word or��sound alike� substitutions may have occurred due to the inherent limitations of voice recognition software.
Discharge Plan
Departure
Patient Disposition: Home (Routine Discharge)
Date of Disposition: 01/16/25
Time of Disposition: 00:28
Patient with high blood pressure during this ER visit?: No
Condition: Good
Discharge Problem:
Constipation by delayed colonic transit, Accelerated hypertension
Instructions: Constipation, Adult (DC)
Prescriptions:
New
amlodipine 5 mg tablet
5 mg PO HS Qty: 60 0RF
No Action
loratadine 10 MG tablet
10 mg PO DAILY
amlodipine [Norvasc] 5 mg Tablet
5 mg PO HS
alprazolam [Xanax] 0.5 mg Tablet
0.5 mg PO TID PRN (Reason: anxiety)
diphenhydramine HCl [Benadryl] 25 mg Capsule
25 mg PO DAILY PRN (Reason: allergies)
ferrous sulfate 325 mg (65 mg iron) Tablet
325 mg PO DAILY
gabapentin 300 mg Capsule
300 mg PO BID
zinc 50 mg Tablet
50 mg PO DAILY
hydroxychloroquine 200 mg Tablet
400 mg PO Q OTHER DAY
nabumetone 500 mg Tablet
500 mg PO BID
dextroamphetamine-amphetamine [Adderall XR] 25 mg Capsule,Extended Release 24hr
25 mg PO DAILY
cyclobenzaprine 5 mg Tablet
5 mg PO HS
duloxetine [Cymbalta] 30 mg Capsule,Delayed Release(Dr/Ec)
30 mg PO HS
duloxetine [Cymbalta] 60 mg Capsule,Delayed Release(Dr/Ec)
60 mg PO HS
calcium citrate 250 mg calcium Tablet
1,000 mg PO TID
Rx Instructions:
2 with meals 3x daily
cholecalciferol (vitamin D3) [Vitamin D3] 50 mcg (2,000 unit) Tablet
50 mcg PO DAILY
potassium citrate 15 mEq Tablet Extended Release
30 meq PO MEALS
Rx Instructions:
with meals
Bariatric Multivitamins 45 mg iron- 800 mcg-120 mcg Capsule
1 cap PO DAILY
oxycodone-acetaminophen 5 MG/325 MG tablet
1 tab PO Q6 PRN (Reason: pain)
buspirone 5 mg Tablet
5 mg PO DAILY
rizatriptan [Maxalt] 10 mg Tablet
10 mg PO ONCE PRN (Reason: migraine)
hydroxychloroquine 200 mg Tablet
200 mg PO Q OTHER DAY
buprenorphine HCl [Belbuca] 600 mcg Film
600 mcg BUCCAL Q12H
Rx Instructions:
1-2x daily
Referrals:
Isabel Lewis GERMINATION TESTING MANAGER [Family Provider, Family Practice] - Call in 1-3 days for appt
Activity Restrictions/Additional Instructions:
Call your bariatric surgeon on Friday to schedule a prompt follow-up appointment.
Stay well-hydrated on a daily basis.
Start a daily stool softener such as Colace, 1 daily along with a daily dose of MiraLAX, one half capful mixed in 6 to 8 ounces of water and continue this on a daily basis.
You have been prescribed amlodipine, 5 mg to take once daily for hypertension.
Follow-up with your primary care physician for recheck and repeat blood pressure evaluation.
Interventions
Interventions:
*Risk Screen - Suicide Last Done: 01/15/25 20:42
*General Assessment Last Done: 01/15/25 22:17
*Neglect/Abuse Screening Last Done: 01/15/25 20:42
*ED- Fall Risk Assessment Last Done: 01/15/25 22:17
*ED COVID-19 Vaccine History Last Done: 01/15/25 22:17
[id number] Assessment Last Done: 01/15/25 22:17
Discharge Date and Time
Print Language: JAMA[place]
[2025-01-15 23:44] VITALS: BP 164/96
[2025-01-16 00:08] LABS: Urine Character Clear (Clear)
[2025-01-16 00:09] VITALS: BP 175/106
[2025-01-16 00:27] LABS: Urine Red Blood Cell 0-2 /HPF (0-2); Urine Squamous Cell 0-2 /LPF (Few); Urine White Cell 0-2 /HPF (0-5)
[2025-01-16] MEDS: NORVASC 5 MG PO (00:38)
== END 2025-01-16 01:02 | disposition home or self-care (01) ==
LOC: EMR 20:36
PROVIDERS: Emergency Medicine; EMERGENCY PHYSICIAN Emergency Medicine; FAMILY PHYSICIAN Nurse Practitioner Adult Health
DX: K59.01 Slow transit constipation (principal); I10 Essential (primary) hypertension; F41.1 Generalized anxiety disorder; G89.4 Chronic pain syndrome; F11.20 Opioid dependence, uncomplicated; Z98.84 Bariatric surgery status
CPT/HCPCS: 96374; 96375; 96361; 99284; 74177; 80053; 81003; 81015; 83605; 83690; 84703; 85025; Q9967